=== PATIENT | male | born 1955 | race African-American/Black ===

== ENCOUNTER 2025-04-13 17:50 | Emergency (ER) | payer OTHER, SELFPAY ==
[2025-04-13] VITALS (8 sets, daily range): BP systolic 108–151; BP diastolic 70–86; PULSE 78–84; RESP 20; TEMP 36.2–36.9; O2SAT 95–98
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
--- OUTSIDE RECORDS SUMMARY | 2025-04-13 19:07 | XMS_ITS | Clinical Summary ---
Author Organization [facility] Address [facility] [place] [address] Care Team Providers Care Education Adviser Name Role Phone Carlos Eduardo Palacio MD Primary Care Provider Allergies No known active allergies Medications tamsulosin 0.4 MG Cap Take 0.4 mg by mouth daily. 11/06/2019 Active Active Problems Problem Noted Date Diagnosed Date Hyperlipidemia with target LDL less than 100 03/2020 Social History Tobacco Use Types Packs/Day Years Used Date Smoking Tobacco: Never Smokeless Tobacco: Never Alcohol Use Standard Drinks/Week Comments Never 0 (1 standard drink = 0.6 oz pur e alcohol) AUDIT-C Answer Date Recorded Frequency of Alcohol Consumption Never 11/20/2019 Average Number of Drinks Not on file 020 Frequency of Binge Drinking Not on file 10/30 PHQ-2 Answer Date Recorded PHQ-2 Score - If the patient scores above 3, please move on to questions 3-9 0 10/30/2019 Sex and Gender Information Value Date Recorded Sex Assigned at Not on file Legal Sex Male 7:34 AM CDT Gender Identity Not on file Sexual Orientation Not on file Last Filed Vital Signs Vital Sign Reading Time Taken Comments Blood Pressure 132/70 11/20/2019 12:47 PM CDT Pulse 63 11/20/2019 12:47 PM CDT Temperature - - Respiratory Rate 20 11/20/2019 12:47 PM CDT Oxygen Saturation - - Inhaled Oxygen Concentration - - Weight 84.9 kg (187 lb 3.2 oz) 11/20/2019 12:47 PM CDT Height 165.1 cm (5' 5) 11/20/2019 12:47 PM CDT Body Mass Index 31.15 11/20/2019 12:47 PM CDT Plan of Treatment Health Maintenance Due Date Last Done Comments Colorectal Cancer Screening Colonoscopy (10 Years) 1955 Hepatitis C 08/04/1973 DTaP, Tdap and Td Vaccines ( 1 - Tdap) 08/04/1974 Pneumococcal Vaccine: 50+ Ye ars (1 of 1 - PCV) 08/04/2005 Zoster Vaccines (1 of 2) 08/04/2005 COVID-19 Vaccine (1 - 2024-2 6 season) 2024 Influenza Adult (#1) 2025 RSV Immunization or 60+ Years (1 - 1-dose 75+ series) 08/04/2030 Hepatitis A Vaccines Aged Out No long er eligible based on patient's age to complete this topic Meningococcal B Vaccine Aged Out No l onger eligible based on patient's age to complete this topic Meningococcal Vaccine Aged Out No [place]ude [place] eligible based on patient's age to complete this topic RSV Immunizations Under 20 Months Aged Out No longer eligible based on patient's age to complete this topic Care Teams Education Adviser Relationship Specialty Start Date End Date Carlos Eduardo Palacio MD [id number] [place] [address] PCP - General INTERNAL MEDICINE 10/30/19
--- OUTSIDE RECORDS SUMMARY | 2025-04-13 19:07 | XMS_ITS | Data Portability ---
Author Organization [facility], [address] ([place]) Address [address] [place] [address] Care Team Providers Care [employer] Tutor Name Role Phone HUY GATICA Primary Care Provider Assessment Encounter Date Assessment Date Assessment LastModified by Organization Details LastModified Time 07/04/2024 07/04/2024 1. Health maintenance: Up to date with colonoscopy. PSA test ordered. Declined immunizations and routine blood work ordered. 2. Hyperlipidemia: CBC, CMP and lipid panel ordered. Not on medication right now. 3. Prostate cancer status post radiation bead insertion: PSA ordered. 4. ED: Monitor. 5. Hypertension: Start amlodipine. EKG ordered given the arrythmia. 6. Chronic pain in ankle: Status post surgical intervention in 2001. X-ray ordered. 7. Prediabetes: A1C ordered. DISPOSITION: Due for a follow up visit in 8 weeks, follow up sooner as needed. tmv Not available 07/05/2024 12:14:30 08/27/2024 08/27/2024 DISPOSITION: Follow up for a physical in June. tmv Not available 08/27/2024 17:21:12 Plan of Treatment Reminders Order Date Submit Date Provider Last Modified By Organization Details Last Modified Time Details Appointments Complete Physical Adult 40.EST 2025 03:00P M Dr. Huy Gatica Not available Not available Not available Lab PSA, serum or plasma 2024 025 [facility] Or Only - Or Laboratory, [facility] [address], [address], 07/06/2024 13:20:54 hemoglobi n A1c + average glucose, QN, blood 2024 025 [facility], [address] [place] [address], [id number], 07/07/2024 13:45:14 lipid panel, serum 2024 025 [facility], [address] [place] [address], [id number], 07/06/2024 13:20:49 CMP, serum or plasma 2024 025 [facility], [address] [place] [address], [id number], 07/06/2024 13:24:09 CBC 2024 025 [facility], [address] [place] [address], [id number], 07/06/2024 13:16:05 Referral None recorded. Procedures None recorded. Surgeries None recorded. Imaging XR, ankle, 3 or more view 2024 025 [facility], [address] [facility], [place], [address], 07/04/2024 15:18:00 electroca rdiogram, routine ECG, 12 leads min 2024 025 [facility], [address], [address] [address], [place], [address], 07/04/2024 15:14:00 Medication Orders amlodipin e 5 mg tablet 2024 025 [facility], [address] [facility], [place], [address], 07/04/2024 14:16:33 Patient TargetsNo targets recorded. Patient InstructionsNo instructions recorded. Reason for Referral None Reported. Results Created Date Observation Date Name Description Value Unit Range Abnormal Flag Note LastModifiedBy Organization Detail LastModifiedTime 07/07/19 25 07/06/2024 CBC CBC Not Available Sc Only - Or [facility] [address] [place] [address], [id number], 07/06/2024 13:16:05 07/07/19 25 07/06/2024 CBC WBC 6.8 K/uL 4.8- 10.8 Not Available Or Only - [facility] [address] [place] [address], [id number], 07/06/2024 13:16:05 07/07/19 25 07/06/2024 CBC RBC 5.12 M/uL 4.70-6 .10 Not Available Or Only - Or Laboratory [address] [place] [address], [id number], 07/06/2024 13:16:05 07/07/19 25 07/06/2024 CBC HGB 15.1 g/dL 14.0-1 8.0 Not Available Or Only - [facility] [address] [place] [address], [id number], 07/06/2024 13:16:05 07/07/19 25 07/06/2024 CBC HCT 45.6 % 42.0-5 2.0 Not Available Sc Only - Or Laboratory [address] [place] [address], [id number], 07/06/2024 13:16:05 07/07/19 25 07/06/2024 CBC MCV 89.1 fL 80.0-9 4.0 Not Available Sc Only - [facility] [address] [place] [address], [id number], 07/06/2024 13:16:05 07/07/19 25 07/06/2024 CBC MCH 29.5 pg 27.0- 31.0 Not Available Sc Only - Or Laboratory [address] [place] [address], [id number], 07/06/2024 13:16:05 07/07/19 25 07/06/2024 CBC MCHC 33.1 g/dL 32.0-3 6.0 Not Available Sc Only - [facility] [address] [place] [address], [id number], 07/06/2024 13:16:05 07/07/19 25 07/06/2024 CBC RDW-SD 44.1 fL 35.1 - 46.3 Not Available Or Only - [facility] [address] [place] [address], [id number], 07/06/2024 13:16:05 07/07/19 25 07/06/2024 CBC plt 375 K/uL 130-40 0 Not Available Or Only - [facility] [address] [place] [address], [id number], 07/06/2024 13:16:05 07/07/19 25 07/06/2024 CBC MPV 9.2 fL 7.5- 11.8 Not Available Or Only - [facility] [address] [place] [address], [id number], 07/06/2024 13:16:05 07/07/19 25 07/06/2024 lipid panel , serum lipid profile Not Available Or Onl y - [facility] [address] [place] [address], [id number], 07/06/2024 13:20:49 07/07/19 25 07/06/2024 lipid panel , serum cholesterol 200 mg/dL <25-20 0 Not Available Or Only - [facility] [address] [place] [address], [address], 07/06/2024 13:20:49 07/07/19 25 07/06/2024 lipid panel , serum triglyceride 66 mg/dL 15-200 Not Available Or On ly - [facility] [address] [place] [address], [id number], 07/06/2024 13:20:49 07/07/19 25 07/06/2024 lipid panel , serum HDL 53 mg/dL >40 Not Available Or Only - [facility] [address] [place] [address], [id number], 07/06/2024 13:20:49 07/07/19 25 07/06/2024 lipid panel , serum LDL, calculated 134 mg/dL 5-100 high Not Available Or On ly - Or [facility] [address] [place] [address], [id number], 07/06/2024 13:20:49 07/07/19 25 07/06/2024 lipid panel , serum VLDL 13 mg/dL 1-40 Not Available Or Only - Or Laboratory [address] [place] [address], [id number], 07/06/2024 13:20:49 07/07/19 25 07/06/2024 lipid panel , serum chol/HDL 3.8 ratio 0.0-4. 4 Not Available Or Only - [facility] [address] [place] [address], [address], 07/06/2024 13:20:49 07/07/19 25 07/06/2024 PSA, serum or plasm a PSA 0.100 NG/mL 0.04-4 .900 This test is perfo rmed on a [employer] ns [employer] ica jaguar zer. Since there are not exist ing stand melissa refer ence units , users shoul d not make claudia rison s eryn en metho ds. Not Available Or Only - [facility] [address] [place] [address], [id number], 07/06/2024 13:20:54 07/07/19 25 07/06/2024 CMP, serum or plasm a comp. met. panel Not Available Or Onl y - [facility] [address] [place] [address], [id number], 07/06/2024 13:24:09 07/07/19 25 07/06/2024 CMP, serum or plasm a sodium 143 mmol/ L 136-14 6 Not Available Or Only - Or Laboratory [address] [place] [address], [id number], 07/06/2024 13:24:09 07/07/19 25 07/06/2024 CMP, serum or plasm a potassium 4.4 mmol/ L 3.5-5. 1 Not Available Or Only - [facility] [address] [place] [address], [address], 07/06/2024 13:24:07/07/19 25 07/06/2024 CMP, serum or plasm a chloride 106 mmol/ L 98-110 Not Available Or Only - [facility] [address] [place] [address], [id number], 07/06/2024 13:24:07/07/19 25 07/06/2024 CMP, serum or plasm a CO2 33 mEq/L 20-32 high Not Available Or Only - [facility] [address] [place] [address], [id number], 07/06/2024 13:24:07/07/19 25 07/06/2024 CMP, serum or plasm a anion gap 8 mmol/ L 10-22 low Not Available Or Only - Or [facility] [address] [place] [address], [address], 07/06/2024 13:24:07/07/19 25 07/06/2024 CMP, serum or plasm a glucose 115 mg/dL 70-100 high Not Available Or Only - Or [facility] [address] [place] [address], [address], 07/06/2024 13:24:07/07/19 25 07/06/2024 CMP, serum or plasm a calcium 9.6 mg/dL 8.4-10 .4 Not Available Or Only - Or [facility] [address] [place] [address], [address], 07/06/2024 13:24:07/07/19 25 07/06/2024 CMP, serum or plasm a total protein 6.6 g/dL 6.4-8. 3 Not Available Or Only - [facility] [address] [place] [address], [address], 07/06/2024 13:24:07/07/19 25 07/06/2024 CMP, serum or plasm a albumin 4.4 g/dL 3.5-5. 3 Not Available Or Only - Or [facility] [address] [place] [address], [address], 07/06/2024 13:24:09 07/07/19 25 07/06/2024 CMP, serum or plasm a ALP 100 U/L 44 - 127 Not Available [facility] [address] [place] [address], [id number], 07/06/2024 13:24:09 07/07/19 25 07/06/2024 CMP, serum or plasm a AST (SGOT) 16 U/L 10-40 Not Available [facility] [address] [place] [address], [id number], 07/06/2024 13:24:07/07/19 25 07/06/2024 CMP, serum or plasm a total bilirubin 1.0 mg/dL 0.2-1. 2 Not Available [facility] [address] [place] [address], [address], 07/06/2024 13:24:09 07/07/19 25 07/06/2024 CMP, serum or plasm a ALT (SGPT) 17 U/L 8-35 Not Available [facility] [address] [place] [address], [address], 07/06/2024 13:24:09 07/07/19 25 07/06/2024 CMP, serum or plasm a BUN 9 mg/dL 7-21 Not Available [facility] [address] [place] [address], [address], 07/06/2024 13:24:09 07/07/19 25 07/06/2024 CMP, serum or plasm a creatinine 1.1 mg/dL 0.7-1. 3 Not Available [facility] [address] [place] [address], [address], 07/06/2024 13:24:09 07/07/19 25 07/06/2024 CMP, serum or plasm a CKD-epi GFR 73 eGFR was calcu lated using the 2020 CKD-E PI equat ion. (Health Officer colleen Verónica y Disea se has an eGFR less than 60 mL/mi n/1.7 3mm for a perio d of three month s or more. ) This calcu latio n has not been valid ated for patie nt ages <18 or >90 years old. Not Available Sc Only - [facility] [address] [place] [address], [id number], 07/06/2024 13:24:09 07/07/19 25 07/07/2024 hemog lobin A1c + avera ge gluco se, QN, blood hemoglobin A1C Not Available Or Onl y - [facility] [address] [place] [address], [address], 07/07/2024 13:45:14 07/07/19 25 07/07/2024 hemog lobin A1c + avera ge gluco se, QN, blood HGB A1C 6.1 %_A1C 4.3 - 5.6 high Not Available [facility] Only - [facility] [address] [place] [address], [id number], 07/07/2024 13:45:14 07/07/19 25 07/07/2024 hemog lobin A1c + avera ge gluco se, QN, blood estimated average glucose 128 mg/dL Not Available Or Onl y - [facility] [address] [place] [address], [id number], 07/07/2024 13:45:14 07/05/19 25 07/04/2024 bill claudiogr am, routi ne ECG, 12 leads min No observ ation record ed. [email or web address] [facility] [address] [address], [place], [address], 07/05/2024 14:21:57 07/05/19 25 07/04/2024 XR, ankle , 3 or more view [facility] [address] , [place] [address] Teleph one Name: LAKSHMI TEJEDA [id number] Exam Date: 2024 Age: 68 Physic ruthie: YO CODY MD, HUY : 1955Ex aminat ion: XR ANKLE COMPLE TE LEFT EXAM: XR ANKLE COMPLE TE LEFT HISTOR Y: Fractu re and surgic al repair left ankle 2001. Pain and tingli ng since, regan g second opinio n. Prior images 2015. FINDIN GS: 3 views of the left ankle are submit sarai. The ankle mortis e and syndes mosis are aligne d. There are postsu rgical change s of open reduct ion planner intern al fixati on of a healed distal fibula fractu re. Joint spaces are mainta ined. IMPRES LINK: Healed reduce d and planner intern ally fixed latera l malleo renu fractu re Electr onical ly signed in Hoyos cribe by: ANGELITA COTTON S on:07/04 2:14 PM cc: Page PAGE 1 of [facility] ES 1 [email or web address] Sc Only - [facility] [address], [place], [address], 07/05/2024 14:21:56 07/05/19 25 07/04/2024 bill brandt am, routi ne ECG, 12 leads min No observ ation record ed. [email or web address] [facility] [address] [address], [place], [address], 07/05/2024 14:21:57 07/30/19 25 07/16/2024 jewel r monit or No observ ation record ed. [email or web address] [address] [address], [place], [address], 08/06/2024 15:55:12 11/02/19 25 08/16/2019 imagi ng/di agnos tic resul t No observ ation record ed. [email or web address] Not Available 0 11/01/2024 20:45:20 11/02/19 25 08/16/2019 imagi ng/jodie de la garza tic resul t No observ ation record ed. [email or web address] Not Available 0 11/01/2024 20:45:21 Result Notes Documentation Provider Name and Address Organization Details Recorded Time Xr, Ankle, 3 Or More View : [facility] [address] [place] [address] Name: LAKSHMI TEJEDA Exam Date: 07/04/2024 Age: 68 Physician: MD GATICA JOSEPH : 1955Examination: XR ANKLE COMPLETE LEFT EXAM: XR ANKLE COMPLETE LEFT HISTORY: Fracture and surgical repair left ankle 2001. Pain and tingling since, getting second opinion. Prior images 10/13/2015. FINDINGS: 3 views of the left ankle are submitted. The ankle mortise and syndesmosis are aligned. There are postsurgical changes of open reduction internal fixation of a healed distal fibula fracture. Joint spaces are maintained. IMPRESSION: Healed reduced and internally fixed lateral malleolus fracture Electronically signed in Voxelcribe by: JOHN JOSEPH on:07/04/2024 2:14 PM cc: Page PAGE 1 of NUMPAGES 1 Yadira Rendon [facility] 07/05/2024 14:21:56 Problems Name Problem SNOMED Code Status Onset Date Resolution Date Notes Provider Name and Address Organization Details Recorded Time Hyperlipide cherise 89633208 Active 2024 Huy Gatica MD [address] [place] [address], [address], [facility] 5 13:55:29 Malignant neoplasm of prostate 252008324 Active 2024 Huy Gatica MD [address] [facility] [place], [address], [facility] 5 13:55:35 Erectile dysfunction 817363907 Active 2024 Huy Gatica MD [address] [place], [address], [facility] 5 13:55:46 Essential hypertensio n 12945031 Active 2024 Huy Gatica MD [address] , [facility] [place], [address], [facility] 5 13:55:52 Chronic ankle pain 1414253012401 9 Active 2024 Huy Gatica MD [address] , [facility] [place], [address], [facility] 5 14:13:24 Cardiac arrhythmia 569917397 Active 2024 Huy Gatica MD [address] [facility] [place], [address], [facility] 5 14:39:24 Prediabetes 956947586 Active 2024 Huy Gatica MD [address] [facility], [facility] [place], [address], [facility] 5 14:42:22 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 Medical Equipment None Reported. Medications Name Sig Start Date Stop Date Status Note LastModified by Organization Details LastModified Time amlodipine 5 mg tablet TAKE 1 TABLET BY MOUTH ONCE DAILY active Not Available Not Available No t Available Vitals Date Recorded Body height Body mass index (BMI) Body weight Heart rate Respiratory rate Oxygen saturation Systolic And Diastolic Systolic And Diastolic Provider Name and Address Organization Details Last Updated DateTime 5 164.47 cm 29.1 kg/m2 29539.9 9 g 91 /min 18 /min 97 % 172/78 mm[Hg] 166/86 mm[Hg] Saige Worrell [facility] 5 13:55:38 Date Recorded Body height Body mass index (BMI) Body weight Heart rate Oxygen saturation Systolic And Diastolic Provider Name and Address Organization Details Last Updated DateTime 5 164.47 cm 28.8 kg/m2 71213.8 9 g 69 /min 99 % 128/74 mm[Hg] Breanna Matos [facility] 14:31:50 Social History None recorded. Functional Status None recorded. Mental Status None recorded. Family History Nothing Reported. Medical History No medical history recorded. Immunizations Vaccine Type Date Status Note Provider Nam e and Address Organization Details Recorded Time COVID-19, mRNA, LNP-S, PF, 30 mcg/0.3 mL dose 08/18/2020 completed [facility] 07/04/[facility]24 13:48:28 COVID-19, mRNA, LNP-S, PF, 30 mcg/0.3 mL dose 09/09/2020 completed [facility] 07/04/2024 13:48:28 COVID-19, mRNA, LNP-S, PF, 30 mcg/0.3 mL dose 04/26/2021 completed Saige White null, [facility] 07/04/2024 13:48:28 COVID-19, mRNA, LNP-S, PF, felipa-sucrose, 30 mcg/0.3 mL 03/18/2023 completed [facility] 07/04/2024 13:48:28 Past Encounters Encounter ID Performer Location Encounter Start Date Encounter Closed Date Diagnosis/Indication Diagnosis SNOMED-CT Code Diagnosis ICD10 Code Diagnosis IMO Codes Diagnosis Note [id number] Huy Gatica MD [address] ([place]) [address] [place] [address] 07/04/2024 13:43:47 07/04/2024 14:55:49 Adult health examination 576619605 Z00.00 6313624 Hyperlipidemia 14718692 E78.49 6797037 Malignant neoplasm of prostate 110863084 C61 76426 Erectile dysfunction 860 202521 N52.8 5366733 Essential hypertension 35467779 I10 85044 Chronic ankle pain 98208 46902 9109 M25.572 G89.29 88913401 Cardiac arrhythmia 91581 7007 I49.9 127335034 Prediabetes 482612752 R7 3.03 192925 [id number] Huy Gatica MD [address] ([place]) [address] [place] [address] [place] [address] 08/27/2024 14:20:16 08/27/2024 15:00:32 Multiple premature ventricular complexes 793223883 I49.3 80318 stable ekg/holter notedasymp tomatic Essential hypertension 75821938 I10 04474 discussed to continue amlodipine 5mg dailyencou raged to lose weight and may be able to reduce medication s Health Concerns Section Related Observation LastModified by Organization Detai ls LastModified Time None Recorded Concern Status LastModified by Organization Details LastModified Time None Recorded Advance Directives Directive None Recorded Payers Insurance Date Sequence Insurance Name Policy Number Policy Dunn Covered Member ID Dunn Member ID Guarantor Name 01/17/2025 1 [employer] [facility] [employer] [id number] Lakshmi Tejeda [id number] Lakshmi Branham Tejeda 01/17/2025 1 [employer] [facility] [employer] (POS) [id number] Lakshmi Tejeda [id number] Lakshmi Branham Tejeda Notes Date Note Type Note Provider Name and Address Organization Details Recorded Time 07/04/2024 text/html The patient is a 68-year-old male who presents for a physical exam. He works for the [employer]. No suicidal ideation. Does have a lot of stress with the boss and this is very stressful for him. He feels like they are trying to get him to retire early and/or fire him, so he is under a lot of stress. His blood pressure has been elevated. Will add on amlodipine back for him.Allergies to Medications: None.Medical Problems: Includes hypertension, ED, hyperlipidemia, prostate cancer status post radiation bead insertion.Past Surgical History: Includes colonoscopy, left ankle surgery, prostate surgery with radiation treatment.Family Medical History: Dad with diabetes.Specialist s: None at this time.Labs Today: Will get lipid panel, CMP, CBC and a PSA. A1C given history of prediabetes. Will also get x-ray of the ankle given some pain and irritation there. Possible intervention needed for that. EKG ordered as well.Health Screenings: Colonoscopy due for repeat in 2028. No depression concerns noted.Immunizations : Declined immunizations at this time.Health Habits: Encouraged physical activity to help with BP management. No tobacco, alcohol or drug use noted. Has upper dentures. Huy Gatica MD [address] [place] [address], [address], [facility] 07/08/2024 19:25:41 08/27/2024 text/html The patient is a 69-year-old man who is here for a blood pressure follow-up visit. His blood pressure is much improved. On recheck it was actually lower. He had a blood pressure of 116/70. His home blood pressure readings were stable. Discussed I want to have him continue on amlodipine. He would like to be off the amlodipine completely. Discussed I did not really think it was possible unless he were to lose about 20 to 30 pounds, and I do not really think that is reasonable. I think it is probably better to stay on the amlodipine 5 daily. Could consider going down on amlodipine 2.5 daily. No side effects with the medication noted. No chest pain, shortness of breath or dizziness or vision changes noted. Huy Gatica MD [address] [place] [address], [phone], [facility] 08/30/2024 09:38:42
== END 2025-04-13 19:14 | disposition home or self-care (01) ==
PROVIDERS: Emergency Provider Internal Medicine Critical Care Medicine
DX: S00.83XA Contusion of other part of head, initial encounter (principal); S60.511A Abrasion of right hand, initial encounter; S50.312A Abrasion of left elbow, initial encounter; I10 Essential (primary) hypertension; Z85.46 Personal history of malignant neoplasm of prostate; V48.5XXA Car driver injured in noncollision transport accident in traffic accident, initial encounter; Z79.899 Other long term (current) drug therapy
CPT/HCPCS: 70450; 70486; 71045; 72125; 72170; 82948; 99284

== ENCOUNTER 2025-04-13 19:30 | Emergency (ER) | payer OTHER, SELFPAY ==
[2025-04-13] VITALS (13 sets, daily range): BP systolic 110–143; BP diastolic 67–80; PULSE 75–91; RESP 14–21; TEMP 36.6; O2SAT 95–99
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
--- OUTSIDE RECORDS SUMMARY | 2025-04-13 19:33 | XMS_ITS | Clinical Summary ---
Author Organization [facility] Address [facility] [place] [address] Care Team Providers Care Sleeping Bag Filler Name Role Phone Carlos Eduardo Palacio MD [...] age to complete this topic Care Teams Sleeping Bag Filler Relationship Specialty Start Date End Date Carlos Eduardo Palacio MD [address] [place] [address] PCP - General INTERNAL MEDICINE 10/30/19
--- NOTE | 2025-04-13 19:35 | PC.NURSE ---
pt discharged from er at 191. pt able to walk to room #6, sitting in chair talking with daughter who is pt in room #6. pt started to be unresponsive, diaphoretic with blowing respirations. pt with no response to pain or verbal stimuli for approx [address] jaffe in room directly. pt assisted to cot from room #7.
--- NOTE | 2025-04-13 19:44 | ECG_ITS ---
Test Date: 2025-04-13 19:33:49 Measurements Intervals Sparks Rate: 70 P: 69 CA: 202 QRS: 90 QRSD: 155 T: 47 QT: 395 QTc: 428 Interpretive Statements SINUS RHYTHM RIGHT BUNDLE BRANCH BLOCK BASELINE ARTIFACT- I, II, III, AVR, AVL, AVF, V2-V6 ABNORMAL ECG No previous ECG available for comparison Electronically Signed On 04-13-2025 20:06:48 DESIGN MAINTENANCE ENGINEER by Arnoldo Flanagan D.O.
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
[2025-04-13 19:59] LABS: HCO3 ABG 19.8 mmol/L (23-29); Oxygen Saturation ABG 96.4 % (95-97); PCO2 ABG 30.1 mmHg (35-45); PO2 ABG 84.1 mmHg (75-85)
[2025-04-13 20:02] LABS: Liters per Minute 0.0 LPM; Modified Allen's Test Unable to perform; Site Drawn RIGHT RADIAL
[2025-04-13 20:09] LABS: Hematocrit 44.5 % (37.0-46.0); Hemoglobin 14.7 g/dL (12.4-15.3); Immature Granulocyte Percent A 0.7 % (0.0-0.0); Lymphocytes Absolute Auto 1.02 K/mm3 (1.10-4.50); Mean Corpuscular HGB Conc 33.0 g/dL (32-36); Mean Corpuscular Hemoglobin 29.5 pg (27.0-31.0); Mean Corpuscular Volume 89.4 fL (78.0-102.0); Nucleated Red Blood Cells Absolute Auto 0.00 K/mm3 (0.00-0.00); Nucleated Red Blood Cells Perc 0.0 % (0-0.0); Platelet Count Result 410 K/mm3 (150-420); Red Blood Count 4.98 M/mm3 (4.70-6.10); White Blood Count 15.2 K/mm3 (4.8-10.8)
[2025-04-13 20:29] LABS: Alanine Aminotransferase 33 U/L (6-50); Albumin Level 4.6 g/dL (3.5-5.1); Alkaline Phosphatase 96 U/L (38-126); Anion Gap 9 mmol/L (4-12); Aspartate Amino Transferase 49 U/L (17-59); Bilirubin,Total 1.1 mg/dL (0.2-1.3); Blood Urea Nitrogen 15 mg/dL (9-20); Calcium 9.3 mg/dL (8.4-10.2); Carbon Dioxide 25 mmol/L (22-30); Chloride 105 mmol/L (98-107); Creatine Kinase 708 U/L (55-170); Estimated CRCL calculation 62 ml/min; Estimated Glomerular Filt Rate > 60; Glucose 124 mg/dL (65-110); Osmolality Calculated 289 mOsm/kg (285-295); Potassium 3.6 mmol/L (3.4-5.0); Sodium 139 mmol/L (137-145); Total Protein 7.5 g/dL (6.3-8.2)
[2025-04-13] MEDS: LACTATED RINGERS 500 ML 999 ML IV CONT (20:30)
[2025-04-13 20:31] LABS: INR 1.0; Prothrombin Time 10.7 Seconds (9.50-12.1)
[2025-04-13 20:34] LABS: Lipase 60 U/L (23-300)
[2025-04-13 20:36] LABS: Add Urine Microscopic? NO; Appearance Urine Clear (Clear); Glucose Urine UA Negative (Negative); Leukocyte Esterase Ur Negative LEU/UL (Negative); Nitrate Urine Negative (Negative); Specific Grav Ur 1.025 (1.010-1.020)
[2025-04-13 20:38] LABS: NT Pro B Type Natriuretic Pept < 20 pg/mL (19.9-100)
[2025-04-13 20:49] LABS: Cannabinoid Screen Urine Positive (Negative)
[2025-04-13 20:53] LABS: Troponin I < 0.012 ng/mL (0.000-0.034)
[2025-04-13 20:54] LABS: Magnesium 2.1 mg/dL (1.6-2.3)
--- NOTE | 2025-04-13 21:00 | PC.NURSE ---
Pt resting, no c/o except for pain in his ribs, VSS, explained POC for transfer to another facility. Awaiting bed status and availability.
[2025-04-13 21:15] LABS: Thyroid Stimulating Hormone 2.160 uIU/mL (0.465-4.680)
--- NOTE | 2025-04-13 21:45 | PC.NURSE ---
Explained to pt that no beds available tonight at [facility] or [facility]. Spoke w/ pts and will try facility in [place] for transfer. Pt VSS and monitor shows NSR.
--- NOTE | 2025-04-13 22:26 | PC.NURSE ---
Pts contacted and discussed no bed availability at hospitals at this time. Options given for transfer elsewhere including [place] or waitlist until opening available in [place]. will speak w/ other family members and call back. Pt sleeping at this time, resting comfortable, VSS, continuing to monitor.
--- NOTE | 2025-04-13 22:29 | PC.NURSE ---
Pts called back and wants to try [facility] in [place] for transfer, call made.
--- NOTE | 2025-04-13 23:30 | PC.NURSE ---
Pts notified about status and POC and no bed availability up [place]. stated can try to transfer to [place]. Pt repositioned in bed for comfort, continuing to monitor, pt c/o severe pain in his ribs when trying to move.
[2025-04-14] VITALS (18 sets, daily range): BP systolic 104–131; BP diastolic 62–83; PULSE 58–99; RESP 13–20; O2SAT 96–98
--- NOTE | 2025-04-14 00:23 | PC.NURSE ---
Pt transferred from ER cot to more comfortable bed. Pt assisted to stand and move to bed. Pt tolerated well w/ moving slowly d/t rib fx pain. Pt remains A&O x4 and continuing to monitor. Pt c/o severe pain in his Rt rib cage w/ movement and asking for pain medication. Dr Jack notified and order obtained.
[2025-04-14] MEDS: IBUPROFEN 400 MG TABLET PO (00:34)
--- NOTE | 2025-04-14 00:45 | PC.NURSE ---
Pt assisted to side of bed and urinated, assisted back to bed w/o incident. Continuing to monitor, VSS, lights dimmed and call nguyen at side.
--- NOTE | 2025-04-14 01:25 | PC.NURSE ---
Adelaida from [facility] called for pt update report and a f/u. Pt still on waitlist and will call w/ and bed when available.
--- NOTE | 2025-04-14 03:00 | PC.NURSE ---
Pt sleeping, resting comfortably, awakens easily to verbal. Continuing to monitor, VSS, no changes, awaiting bed placement.
--- NOTE | 2025-04-14 05:14 | PC.NURSE ---
Pt continues to sleep, RR even and nonlabored, VSS, continue w/ monitoring until bed placement found today.
[2025-04-14 07:15] LABS: Hematocrit 40.0 % (37.0-46.0); Hemoglobin 13.3 g/dL (12.4-15.3); Mean Corpuscular HGB Conc 33.3 g/dL (32-36); Mean Corpuscular Hemoglobin 29.6 pg (27.0-31.0); Mean Corpuscular Volume 88.9 fL (78.0-102.0); Platelet Count Result 363 K/mm3 (150-420); Red Blood Count 4.50 M/mm3 (4.70-6.10); White Blood Count 9.6 K/mm3 (4.8-10.8)
--- NOTE | 2025-04-14 07:24 | PC.NURSE ---
Call placed and report given to Leandra at [facility].
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
[2025-04-14 07:29] LABS: Anion Gap 6 mmol/L (4-12); Blood Urea Nitrogen 11 mg/dL (9-20); Calcium 8.8 mg/dL (8.4-10.2); Carbon Dioxide 26 mmol/L (22-30); Chloride 108 mmol/L (98-107); Estimated CRCL calculation 59 ml/min; Estimated Glomerular Filt Rate > 60; Glucose 104 mg/dL (65-110); Osmolality Calculated 289 mOsm/kg (285-295); Potassium 3.8 mmol/L (3.4-5.0); Sodium 140 mmol/L (137-145)
[2025-04-14 07:41] LABS: Troponin I < 0.012 ng/mL (0.000-0.034)
--- NOTE | 2025-04-14 08:55 | PC.NURSE ---
0853 PT TAKEN OFF WAITING LIST FOR [facility] 0855 PT TAKEN OFF WAITING LIST FOR [facility]
== END 2025-04-14 08:27 | disposition short-term general hospital (02) ==
PROVIDERS: Emergency Provider Internal Medicine Critical Care Medicine
DX: S22.41XA Multiple fractures of ribs, right side, initial encounter for closed fracture (principal); R55 Syncope and collapse; I10 Essential (primary) hypertension; Z85.46 Personal history of malignant neoplasm of prostate; Z79.899 Other long term (current) drug therapy; V48.0XXA Car driver injured in noncollision transport accident in nontraffic accident, initial encounter
CPT/HCPCS: 36415; 36600; 71275; 74174; 80048; 80053; 80307; 81003; 82550; 82805; 82948; 83605; 83690; 83735; 83880; 84443; 84484; 85025; 85027; 85380; 85610; 93005; 96360; 99285; A9270; J7120; Q9967